=== PATIENT | male | born 1990 | race Caucasian/White ===

== ENCOUNTER 2016-06-25 15:47 | Emergency (ER) | payer OTHER ==
[~2016-06-25] VITALS: Wt 63.5 kg
== END 2016-06-25 18:15 | disposition short-term general hospital (02) ==
LOC: ED 15:47
DX: S02.80XA Fracture of other specified skull and facial bones, unspecified side, initial encounter for closed fracture (principal); Y08.89XA Assault by other specified means, initial encounter; Y93.89 Activity, other specified; Y92.9 Unspecified place or not applicable; Y99.9 Unspecified external cause status